=== PATIENT | male | born 1980 | race Caucasian/White ===

== ENCOUNTER 2020-02-22 19:51 | Emergency (ER) | payer OTHER, SELFPAY ==
[2020-02-22 20:17] VITALS: BP 125/81; PULSE 74; RESP 18; TEMP 36.7; O2SAT 99; BMI 23.0
--- NOTE | 2020-02-22 20:46 | HMH.EDUTC ---
[facility] – [place] Disposition Clinical Impression: Facial laceration Qualifiers: Encounter type: initial encounter Qualified Code(s): S01.81XA - Laceration without foreign body of other part of head, initial encounter Disposition: Home, Self-Care Condition on Discharge: Good Instructions: How to Care for a Laceration After Repair, Laceration Repair, DI for Laceration Repair -- Simple Additional Instructions: Keep the wound clean and dry. Watch the for signs of infection, such as redness, swelling, drainage, fever. etc. Take tylenol or ibuprofen for pain. Follow up with your regular doctor. Return in 5 days to have the sutures removed. GO TO THE ER FOR ANY WORSENING SYMPTOMS OR CONCERNS. Referrals: Dustin Lewis MD [Primary Care Provider] - Time of Disposition: 20:49 Medical Decision Making - Medical Records Medical records reviewed: No: I reviewed the patient's medical records. - Mehdi Inquiry Pt receiving controlled substance: No Vital Signs: 02/22/20 20:17 02/22/20 21:00 Temperature 98.0 F 98.0 F Temperature Source Oral Pulse Rate 74 Pulse Rate [Right Brachial] 74 Respiratory Rate 18 18 Blood Pressure 125/81 Blood Pressure [Right Arm] 125/81 Blood Pressure Mean [Right Arm] 95 Blood Pressure Source [Right Arm] Automatic Cuff Blood Pressure Position [Right Arm] Sitting 02 Sat by Pulse Oximetry 99 Oxygen Delivery Method Room Air Orders (Tests/Meds): ED MEDICATIONS Discontinued Medications Generic Name Dose Route Start Last Admin Trade Name Freq PRN Reason Stop Dose Admin Tetanus/Reduced Diphtheria/Acell Pertussis 0.5 ml 02/22/20 20:20 02/22/20 20:27 Adacel Tdap 0.5ml Syringe IM 02/22/20 20:21 0.5 ml .ONCE ONE Administration [facility] – [place] HPI - General Stated complaint: AO 1930 Hit mouth with piede of metal Time Seen by Provider: 02/22/20 20:20 Mode of Arrival: Ambulatory Source of Information: Patient Limitations: No Limitations Description of Symptoms (Recalled from Triage Doc. by RN): PATIENT C/O LACERATION TO LIP. STATES A PIECE OF METAL FLEW UP AND HIT HIM IN THE MOUTH TODAY HEENT Symptoms (Recalled from RN notes): No Resp Symptoms (Recalled from RN notes): No Skin Symptoms (Recalled from RN notes): Yes MS Symptoms (Recalled from RN notes): No Functional Status (Recalled from RN notes): WNL - History of Present Illness Provider Complaint: He states that he was working on a piece of equipment when he slipped and his himself in the face with a tool. He has a laceration above and to the right of his mouth. His tetanus immunization is not up to date. - Related Data Allergies Allergy/AdvReac Type Severity Reaction Status Date / Time No Known Drug Allergies - Allergy Unknown NA Uncoded 08/27/17 14:40 Nkda - Worker's Comp Is this a Worker's Comp case?: No [facility] History - Hepatitis A Screen Drug use history?: No High risk sexual behaviors?: No History of sexually transmitted infection?: No Currently employed?: No Childcare worker?: No Do you have indoor plumbing?: Yes Do you have electricity?: Yes Attestation statement:: This patient has been screened for Hepatitis A risk factors. I have reviewed the patient's past medical history: Yes - Social History Alcohol Intake: never Occupational Status: other ROS Obtained: Yes All systems reviewed & no additional complaints - Constitutional Constitutional: Denies chills, Denies fever(s) - Integumentary/Breasts Skin/Breast: Reports as per HPI - Neurologic Neurologic: Denies tingling/numbness/burning sensations Physical Exam - General General appearance: alert, in no apparent distress - Head Head exam: atraumatic, normocephalic, normal inspection - Eye Eye exam: Present: normal appearance, PERRL, EOMI - ENT ENT exam: Present: normal exam, normal oropharynx, mucous membranes moist, TM's normal bilaterally, normal external ear exam - Neck Neck exam: Present: normal inspection, f
[2020-02-22 21:00] VITALS: BP 125/81; PULSE 74; RESP 18; TEMP 36.7; O2SAT 99
== END 2020-02-22 21:03 | disposition home or self-care (01) ==
PROVIDERS: Emergency Provider Nurse Practitioner Family; PCP Internal Medicine Adolescent Medicine
DX: S01.81XA Laceration without foreign body of other part of head, initial encounter (principal); W27.8XXA Contact with other nonpowered hand tool, initial encounter; Y92.89 Other specified places as the place of occurrence of the external cause; Z23 Encounter for immunization
CPT/HCPCS: 12011; 90471; 90715; 99201